=== PATIENT | female | born 1935 | race Caucasian/White ===

== ENCOUNTER 2018-08-05 05:31 | Observation (INO) ==
[2018-08-05] MEDS ORDERED: Metoprolol Tartrate 25 MG Tablet PO ONE (06:09)
[2018-08-05] MEDS ORDERED: Chlorhexidine Gluconate 2% 1 Pack (2 Cloths) TOPICAL ONE (06:09)
[2018-08-05] MEDS ORDERED: Heparin - SQ 10,000 UNITS/ML Vial SQ ONE (06:15)
[2018-08-05] MEDS ORDERED: Artificial Tears Opth Oint 3.5 GM Tube ONE (06:29)
[2018-08-05] MEDS ORDERED: Sugammadex Inj 200 MG/2 ML Vial IV.PUSH ONE (06:29)
[2018-08-05] MEDS ORDERED: Famotidine PF Inj 20 MG/2 ML Vial ONE (06:31)
[2018-08-05] MEDS ORDERED: ceFAZolin 1 GM Premix Inj 1 GM/50 ML PIGGYBACK IV.SIG ONE (06:34)
[2018-08-05] MEDS ORDERED: ceFAZolin 1 GM Premix Inj 1 GM/50 ML PIGGYBACK IV.SIG SCH (07:00)
[2018-08-05] MEDS ORDERED: Sodium Chlor 0.9% Inj 500 ML IV.SIG SCH (07:00)
[2018-08-05] MEDS ORDERED: Lidocaine 1%/Epinephrine 1:100,000 Inj 20 ML Vial INFILTRATN ONE (09:49)
[2018-08-05] MEDS ORDERED: Methylene Blue Inj 100 MG/10 ML Vial IV.PUSH ONE (09:50)
[2018-08-05] MEDS ORDERED: LORazepam 0.5 MG Tablet PO PRN (11:31)
[2018-08-05] MEDS ORDERED: fentaNYL Citrate Inj 100 MCG/2 ML Ampul ONE (11:48)
[2018-08-05] MEDS ORDERED: *HYDROmorphone PF Inj 1 MG/ML Ampul PERIprocedural Use ONLY ONE (12:01)
[2018-08-05] MEDS ORDERED: *Ondansetron Inj 4 MG/2 ML Vial PERIprocedural Use ONLY ONE (12:01)
[2018-08-05] MEDS: KCL 20 mEq/D5W/NaCl 0.45% Inj 1,000 ML IV.CONT SCH ×2 (12:17→23:14)
--- NOTE | 2018-08-05 13:50 | MP ---
cc: Nanette Lewis MD, DeLeon MD Steven,Tae LOMAX DATE OF OPERATION: 08/05/2018 PREOPERATIVE DIAGNOSIS: 1. High-grade endometrial cancer. 2. Enlarged uterus. POSTOPERATIVE DIAGNOSES: 1. High-grade endometrial cancer. 2. Enlarged uterus. PROCEDURE: Robotic-assisted laparoscopic hysterectomy, bilateral salpingo-oophorectomy, bilateral pelvic lymphadenectomy. SURGEON: Nanette Lewis MD MICROBIOLOGICAL LABORATORY TECHNICIAN: Daniel legal assistant. ANESTHESIA: General endotracheal anesthesia. ESTIMATED BLOOD LOSS: 150 mL. IV FLUIDS: 1300 mL. URINE OUTPUT: 50 mL. HISTORY AND INDICATIONS: This is an 82-year-old female with postmenopausal bleeding that she reports she first noticed in May, sought evaluation. Imaging showed a uterus to be enlarged, approximately 10-11 cm with a fullness in the endometrial cavity, endometrial stripe measured approximately 32 mm. CAT scan showed no overt evidence of adenopathy or metastatic disease. She was counseled regarding these findings and recommendations for surgery. She was in favor of moving forward with surgery. She is seen again in the preop holding area, accompanied by her daughter, where the findings are again reviewed and the plan of care discussed. Questions were asked and answered. They expressed good understanding and agreed to move forward with surgery. FINDINGS: The uterine cavity sounded to between 10 and 11 cm in the peritoneal cavity. It appears as though the right tube and ovary are surgically absent. Left tube and ovary grossly appeared normal. There were adherent to the posterior cul-de-sac. There were no appreciably enlarged periaortic or pericaval lymph nodes. There are several prominent enlarged lymph nodes in the pelvis bilaterally. In the peritoneal cavity, there were no peritoneal implants. The liver diaphragm edges are smooth. The omentum grossly appears normal. The large and small bowel and adjacent mesentery appear normal. There was some diverticulum noted and some mild adhesions between the colon and the left pelvic sidewall. The uterus, once removed, showed a fairly significant tumor being approximately 6 cm in diameter. It was very poorly differentiated and it invaded just beyond 50% of the myometrium with estimated 8 mm out of a 15 mm thick myometrium. DESCRIPTION OF PROCEDURE: She was taken to the operating room and placed in dorsal lithotomy position, after general endotracheal anesthesia was administered. A timeout was undertaken. She was identified by site recognition and hospital ID bracelet and the proposed procedure was reviewed and confirmed. She was carefully positioned in padded Timoteo stirrups. Her arms were padded and secured to the sides. She was further secured to the operating table with egg crate padding and tape in a cross chest over the shoulder fashion. All sites noted to be properly aligned with no malalignments or pressure points. She was prepped in sterile fashion and draped below the waist, placed in lithotomy position. The cervix was grasped. The uterine cavity was sounded. Cervix was dilated and a standard Vcare manipulator was inserted and secured in usual fashion. Velarde catheter placed in the bladder. She was returned to low lithotomy position. Change of sterile gloves was undertaken, and we completed draping in anticipation of laparoscopy. We confirmed that an orogastric tube was in the stomach on suction. With manual elevation of the abdominal wall under direct laparoscopic visualization, 5 mm cannula was placed in the left upper quadrant, carbon dioxide gas was insufflated and an atraumatic entry was confirmed; 8 mm cannulas were placed in the right upper quadrant and left lateral quadrant and the 12 mm cannula was placed in the midline above the umbilicus. She was placed in Trendelenburg position. The anatomy was surveyed with findings as described above. Peritoneal washings were obtained for cytology. The small bowel was folded back on its mesenteric root. Three Ray-Daphnie sponges were placed around the root of the small bowel mesentery. Robotic system was brought into the operative field and attached in the usual fashion. Monopolar scissors, fenestrated bipolar forceps and ProGrasp manipulators were placed in arms #1, 2, and 3 respectively and I took my place at the surgeon's console. The right round ligament was isolated, cauterized, transected. The anterior and posterior leaves of the broad ligament were opened. The right ureter was identified. The right infundibulopelvic ligament was isolated to the level of the pelvic brim where it was cauterized, even though the right tube and ovary appeared to be surgically absent, the vessels appeared intact and so they were cauterized and transected. Whatever residual adnexal tissue would be removed with the specimen. Posterior peritoneum opened along the right side of the uterus and cervix and the right uterine vessels were skeletonized. Some bleeding was encountered, which was cauterized and then a Ray-Daphnie was used for pressure placement after that, and the vesicouterine peritoneum was dissected off the lower uterine segment and cervix along the right side. The uterine vessels were further skeletonized and cauterized. Attention was directed toward the left side where lysis of adhesions were taken down to mobilize the colon from its attachments against the left pelvic sidewall and to gain access to the sidewall structures. The left round ligament was isolated, cauterized, and transected and the anterior and posterior leaves of the broad ligament were further opened. The left ureter was identified. The left infundibulopelvic ligament was isolated. The intervening peritoneum was opened. The infundibulopelvic ligament was isolated to the level of the pelvic brim where it was cauterized and transected. Sharp dissection was used to free the adnexa from its adherence in the posterior cul-de-sac and elevate it and mobilize it as the left uterine vessels were skeletonized and the posterior peritoneum was opened along the left side of the uterus and cervix. Attention was redirected toward the vesicouterine peritoneum, which was further dissected down on the right side until the bladder flap was down below the level of the cervix and the uterine vessels were skeletonized and exposed. Now, the uterine vessels on the left were thoroughly cauterized and transected as were the cardinal, paracervical and uterosacral ligaments. Attention was redirected to the right side where the right uterine vessels were now transected and the cardinal, paracervical and uterosacral ligaments were isolated, cauterized, and transected in a stepwise fashion. Circumferential colpotomy was performed the cervix from the upper vagina and, due to the large size of the uterus relative to the pelvic outlet, I left the surgeon's console to help facilitate transvaginal delivery of the specimen. The cervix was grasped and brought out through the introitus and a large curette was used to curette a large volume of tumor from the endometrial cavity, which in the process helped reduce the size and tension on the uterine specimen, and with curetting, countertraction and repositioning, the specimen was able to eventually be delivered transvaginally which included the uterus, cervix, and whatever adnexal tissues were attached, tubes and ovaries. A pneumo-occluder balloon was placed in the vagina to maintain pneumoperitoneum. I returned to the surgeon's console. Instruments 1 and 3 exchanged for needle drivers as a 0 Vicryl suture was introduced. The vaginal cuff was closed starting at the left corner where full thickness closure including the posterior peritoneum and edge of the uterosacral ligaments were incorporated tied via instrument tie. The suture was held on countertraction as a running full thickness continuous closure was carried across the vaginal apex to the contralateral corner, where it was similarly fixed, tied and secured. The needle was cut and removed. Pathology came back showing a large deeply invasive and poorly differentiated tumor. Accordingly, attention was directed toward getting additional information. The right paravesical and pararectal spaces and obturator spaces were opened. Careful inspection and visual inspection led to the isolation of an enlarged lymph node, right, and the bifurcation proximally of the external and internal iliac lymph node. There was another enlarged lymph node or group of lymph nodes along the midportion of the external iliac vessels and another node or group of nodes in the obturator space that appeared abnormal. Each of these were isolated and removed and in the order as described with bipolar cautery and sharp dissection. They were placed in the right pericolic gutter on a Ray-Daphnie sponge for later retrieval. Inspection confirmed that there were no other abnormal appearing lymphatics. The remainder of the lymphatics were left intact in an effort to reduce morbidity. Inspection and palpation over the periaortic and pericaval regions did not reveal any prominent lymph nodes and attention was directed toward the left pelvis. In the left pelvis, the perivesical, perirectal and obturator spaces were developed and a large node or group of nodes were noted along the external iliac artery proximally, near the circumflex iliac vein distally, and in the distal edge of the obturator space. Each of these were isolated with bipolar cautery and sharp dissection and removed in that order and placed in the right pericolic gutter for later retrieval. Inspection revealed no other prominent lymph nodes. Remainder of the tissue appeared normal and was left in situ in an effort to reduce morbidity. It was felt that all reasonable surgical objectives had been completed, the pelvis had been thoroughly irrigated, rendered free of blood and clot. Small bleeders were rendered hemostatic with bipolar cautery. The integrity of the bladder was confirmed by filling the bladder with saline dyed with methylene blue. It distended nicely under pressure. There were no areas of blue and no thinning of the bladder. Certainly no extravasation of dye. There was a good margin between the vaginal cuff and the edge of the bladder. The bladder was drained. There was good peristalsis of ureters bilaterally. The neurovascular structures were intact with good hemostasis. To assist in continued hemostasis, Chelle hemostatic powder was placed in the pelvic lymph node dissection beds and across the vaginal cuff. The robotic instruments were removed. The robotic system was disengaged from the operative field. I reentered the bedside under sterile condition. Endo Catch bag was used to capture the lymph nodes, the right and the left had been combined, and were sent for permanent histopathologic analysis labeled as bilateral pelvic lymph nodes. Next, each of the 3 Ray-Daphnie sponges that had been placed in the peritoneal cavity were removed. Each were removed individually and inspected and noted to be removed in their entirety. There were no remaining foreign objects in the peritoneal cavity. Preliminary counts were correct. The 12 mm fascial defect was closed with interrupted 0 Vicryl sutures using a needle pass fascial closure apparatus, which was tied securely, and rendered the fascia completely airtight and hemostatic. The remaining cannulas were withdrawn. Carbon dioxide gas was removed. 3-0 Vicryl subcutaneous, 3-0 Vicryl subcuticular and Steri-Strips were used to close these incisions. She was returned to dorsal lithotomy position. There were no remaining foreign objects in the vagina. The vaginal cuff was well-supported, hemostatic. There was some superficial irritation to the vaginal mucosa on a broad surface area due to irritation from specimen delivery, but no active bleeding or lacerations. The remainder of the hemostatic Chelle powder was placed across the vaginal cuff and upper vagina to assist in continued hemostasis. Final counts were correct. She was returned to dorsal supine position and was pending reversal of anesthesia when I left the operating room to precede her to the postanesthesia care unit. MD MATEO Ferrell/rbea , 12:18 PM , 12:40 PM
[2018-08-05] MEDS: Ketorolac Inj 30 MG/ML (IVP) Vial IV.PUSH SCH ×2 (18:21→23:06)
[2018-08-06] MEDS ORDERED: Haloperidol Inj 5 MG/ML Ampul IM ONE (01:45)
--- NOTE | 2018-08-06 01:54 | XR ---
EXAM DATE: 08/06/2018 1:51 AM EST AGE/SEX: 82 years / Female INDICATIONS: Short of breath. CLINICAL DATA: This is the patient's initial encounter. Patient reports that signs and symptoms have been present for 1 day and indicates a pain score of 0/10. MEDICAL/SURGICAL HISTORY: . Carcinoma, cervical. Hysterectomy. COMPAR[place]: [facility] [place] PA&LAT[place] 08/03/2018. . FINDINGS: There is cardiomegaly, patchy airspace disease in the lower lobes, right middle lobe and right upper lobe. No effusions. Left axillary clips are noted. CONCLUSION: Interval development of bilateral infiltrates. Electronically signed by: Dwayne Jules MD 08/06/2018 1:53 AM EST
[2018-08-06] MEDS: Ketorolac Inj 30 MG/ML (IVP) Vial IV.PUSH SCH ×4 (02:36→11:49)
[2018-08-06 06:25] LABS: Baso % (Auto) 0.3 % (0.0-2.0); Hematocrit 39.9 % (35.0-46.0); Hemoglobin 13.3 gm/dL (11.6-15.3); Lymph # (Auto) 1.6 th/mm3 (1.0-4.8); Lymph % (Auto) 9.1 % (9.0-44.0); Mean Corpuscular HGB Conc 33.2 % (32.0-36.0); Mean Corpuscular Hemoglobin 27.2 pg (27.0-34.0); Mean Corpuscular Volume 81.8 fL (80.0-100.0); Mean Platelet Volume 8.6 fL (7.0-11.0); Mono % (Auto) 6.1 % (0.0-8.0); Neut # (Auto) 14.5 th/mm3 (1.8-7.7); Neut % (Auto) 84.5 % (16.0-70.0); Platelet Count 222 th/mm3 (150-450); Red Blood Count 4.88 mil/mm3 (4.00-5.30); White Blood Count 17.1 th/mm3 (4.0-11.0)
[2018-08-06 06:54] LABS: Calcium 7.4 mg/dL (8.5-10.1); Carbon Dioxide 25.7 meq/L (21.0-32.0); Potassium 4.3 meq/L (3.5-5.1)
[2018-08-06 07:02] LABS: Calcium-Albumin Corrected 8.2 mg/dL (8.5-10.1)
[2018-08-06 08:40] VITALS: RESP 16
[2018-08-06] MEDS ORDERED: amLODIPine 5 MG Tablet PO SCH (09:00)
[2018-08-06] MEDS ORDERED: Atenolol 25 MG Tablet PO SCH (09:00)
[2018-08-06] MEDS: KCL 20 mEq/D5W/NaCl 0.45% Inj 1,000 ML IV.CONT SCH (09:42)
--- NOTE | 2018-08-06 10:58 | MD ---
cc: Nanette Lewis MD,Broderick Odonnell DATE OF DISCHARGE: PROCEDURE: On 08/05/2018, robotic-assisted laparoscopic hysterectomy, bilateral salpingo-oophorectomy, bilateral pelvic lymphadenectomy. HOSPITAL COURSE: She had a difficult first night after surgery. In the middle of the night, she became confused, very anxious combative pulled out her IV's and pulled out her Velarde catheter. Grateful for an attention from nursing and Dr. Desir who evaluated and addressed her anxiety and redirected her orientation. Family member was notified and in her presence helped reorient the patient. Nursing reports with anxiety and periods of holding her breath and being agitated, her O2 saturations dropped, but when she calmed down this resolved. Chest x-ray was obtained, which suggests some interval development of bilateral infiltrates. There is underlying cardiomegaly. There is patchy airspace disease, no effusions. She is known to have been under general anesthesia, within the last 24 hours. On the morning of postoperative day #1. She was calm and seemed to be reoriented. Her breathing was unlabored. IV's were replaced. Velarde catheter was left out, all of which were appropriate and she appears to be more at baseline. LABORATORY: Ins and outs 3090/1325. Labs this morning show an H and H of 13.3 and 39.9. Electrolytes: Potassium 4.3, BUN and creatinine 12 and 1.08 consistent with baseline. PHYSICAL EXAMINATION: VITAL SIGNS: She is afebrile. Pulse has been 72-105, respirations 14-24, blood pressure 140-169/55-69. O2 saturations have varied, the lowest recorded was 88%, which was around midnight when she was having the aforementioned episode. Since that time, it has been between 96-98% on nasal cannula oxygen. She seems more at baseline and is calm. LUNGS: Her apices of her lungs are clear, but there are some mild basilar rales. CARDIOVASCULAR: Regular rate and rhythm. ABDOMEN: Soft. Incisions clean and dry. GYNECOLOGIC: No bleeding. EXTREMITIES: Nontender. POSTOPERATIVE DAY #1: Improved now on the morning of postoperative day #1. FINDINGS AT THE TIME OF SURGERY: Preliminary pathology and steps taken were reviewed. 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 Their imaging and history suggests there may be an element of mild excess fluid for which Lasix will be given this morning and her IV's will be Hep-Locked but her clinical status has significantly improved. PLAN: I anticipate that she will probably reach criteria for discharge to home later today, but we will hold her discharge this morning so that we can reevaluate throughout the morning. Upon discharge, she is to resume her prior medications. She will have a prescription for tramadol if she needs it, but she is encouraged to use [id number] medication if possible as she may be sensitive to any stronger pain medications. Activities and restrictions are again reviewed. Questions were asked and answered. Her and her family member expressed good understanding. Our office number is made available. She is to contact our office to schedule followup within 1-2 weeks or at anytime should there be questions or problems. MD MATEO Ferrell/dandre , 07:59 AM , 08:10 AM
[2018-08-06 11:48] VITALS: BP 138/53; PULSE 66; TEMP 98.9
[2018-08-06 16:01] VITALS: O2SAT 94
--- NOTE | 2018-08-07 00:34 | MD ---
cc: Nanette Lewis MD DATE OF DISCHARGE: 08/06/2018 ADDENDUM: Gela Cosby has visited again accompanied by friend and family members and with input from her daughter who has been taking care of her all day. Her sensorium has cleared. She has no symptoms. She denies any shortness of breath or chest pain. She has been eating well, ate breakfast and lunch. She has been able to ambulate back and forth to the bedside commode. Her family has been assisting her as needed and she is not short of breath with physical activity. She seemed to respond well to the single dose of Lasix this morning, although the output is difficult to objectively measure it. It was associated with some incontinence and some bedside commode trips accompanied by her family nevertheless. Her weight does not indicate any significant fluid overload as her weight yesterday morning upon admission was 58.3 kg. Her weight this morning 24 hours later was 58.2 kg. She had some isolated low oxygen saturations. I discontinued her oxygen and after a period of 10-15 minutes off of oxygen, she did her spirometer and was instructed to take deep breaths, and even while having a conversation, she remained asymptomatic and her O2 saturations on room air were able to be brought up to 93-94%. PHYSICAL EXAMINATION: On physical examination, she states that she would like to go home and says that she wants to go home because she can cook in her own kitchen, use her own bathroom, and sleep in her own bed. I talked to her daughter on the phone and her family members present as well as a close friend. The close friend is a retired nurse and understands the importance of pulmonary efforts in the postoperative period. She has demonstrated the ability to use incentive spirometry and her family is all very comfortable with her going home and prefers to watch her at home as opposed to her staying another night in the hospital. On exam, her lungs are clear. Mild basilar rales. Cardiovascular, the rate has now slowed down, most recently 66-69 beats per minute, blood pressure stable 138 to 156/53-63. Abdomen, soft. Incisions clean and dry. 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 Postoperative day #1, I believe she has met criteria to satisfactorily be discharged to home and is hemodynamically stable. She is going home with the care of an excellent family including an experienced nurse. She is to call our office to schedule followup within 1-2 weeks or to contact us at any time should there be any questions or problems. MD MATEO Ferrell/arlene/lori , 04:10 PM , 04:17 PM
== END 2018-08-06 17:40 | disposition home or self-care (01) ==
LOC: HSDC 05:31 → HSDI 05:31 → HCIN 13:00
PROVIDERS: ADMIT Obstetrics & Gynecology Gynecologic Oncology; ATTEND Obstetrics & Gynecology Gynecologic Oncology